=== PATIENT | female | born 1950 | race Caucasian/White ===

== ENCOUNTER 2016-05-09 20:37 | Emergency (ER) | payer BC ==
[~2016-05-09] VITALS: Ht 165.1 cm; Wt 77.1 kg
[2016-05-09] MEDS ORDERED: traMADol 50mg tab ORAL ONE (21:45)
[2016-05-09] MEDS ORDERED: IBUPROFEN600 MG ORAL (22:32)
[2016-05-09 22:40] VITALS: BP 145/73
--- NOTE | 2016-05-09 23:06 | Emergency Room Report ---
History of Present Illness General Chief Complaint: Lower Extremity Injury Source: Patient Present Illness HPI The pt is a 65 yo F presenting for R ankle pain which began today after missing a step and twisting the ankle. The pt states the pain is an 8/10 dull ache and radiates to the mid foot. The pt denies numbness/tingling. The pt denies prior injury to the ankle. The pt is unable to fully bear weight on the foot. The pt denies other symptoms Allergies: Uncoded Allergies: SULFA (Allergy, Unknown, 05/09/16) Patient History Past Medical History: see triage record Pertinent Family History: none Now: No : 11 Para: 8 Reviewed Nursing Documentation: PMH: Agreed, PSxH: Agreed Nursing Documentation-PMH Hx Asthma: Yes Hx Cancer: Yes - UCTD, Review of Systems All Other Systems: negative except mentioned in HPI Physical Exam Vital Signs Date Time Temp Pulse Resp B/P Pulse Ox O2 Delivery O2 Flow Rate FiO2 05/09/16 20:45 97.7 61 18 145/73 99 Room Air Sp02 EP Interpretation: reviewed, normal General Appearance: no apparent distress, alert, GCS 15, non-toxic Head: normocephalic, atraumatic Eyes: bilateral eye PERRL, bilateral eye normal inspection Musculoskeletal: back normal, normal range of motion, no calf tenderness, swelling - over the lateral ankle, tender - TTP over the lateral ankle Neurologic: alert, oriented x3, responsive, motor strength/tone normal, sensory intact, speech normal Psychiatric: judgement/insight normal, memory normal, mood/affect normal, no suicidal/homicidal ideation Reflexes: 3+ bicep (R), 3+ bicep (L), 3+ tricep (R), 3+ tricep (L), 3+ knee (R) , 3+ knee (L) Skin: normal color, no rash, warm/dry, well hydrated Procedures Splinting Splinting : Consent: Emergent Location: R ankle Pre-Made Type: SANTANA wrap Pre-Proc Neuro Vasc Exam: normal Post-Proc Neuro Vasc Exam: normal Patient Tolerated: Well Complications: None Medical Decision Making PA Attestation Dr. Abreu is my supervising physician. Patient management was discussed with my supervising physician Diagnostic Impression: Primary Impression: Ankle sprain ER Course The pt is a 65 yo F presenting for R ankle pain which began today after missing a step and twisting the ankle. Ddx considered include but not limited to sprain/strain, fracture, contusion PE: Vitals WNL. NAD. R foot: Skin intact. No erythema or ecchymosis. 1+ edema to lateral mal. Sensation intact to light touch. Full AROM. No joint laxity. TTP over lateral mal and 5th metatarsal Xray of foot and ankle unremarkable. The ankle is placed in SANTANA wrap and the pt is provided crutches. ER precautions given. Pt will FU with PMD. Prescription for motrin given. Other X-Ray Diagnostic Results Other X-Ray Diagnostic Results #1: X-Ray Ordered: R ankle Date: May 09, 2016 EP Interpretation: Yes Findings: no fractures, no dislocation, no soft tissue swelling Number of Views: 3 PA Scribe Text I'm acting as scribe for my supervising physician. My supervising physician's interpretation of the R ankle xrays are there are no fractures, dislocations or soft tissue swelling Other X-Ray Diagnostic Results #2: X-Ray Ordered: R foot Date: May 09, 2016 EP Interpretation: Yes Findings: no fractures, no dislocation, no soft tissue swelling Number of Views: 3 PA Scribe Text I'm acting as scribe for my supervising physician. My supervising physician's interpretation of the R foot xrays are there are no fractures, dislocations or soft tissue swelling Last Vital Signs Date Time Temp Pulse Resp B/P Pulse Ox O2 Delivery O2 Flow Rate FiO2 05/09/16 20:45 97.7 61 18 145/73 99 Room Air Status: improved Disposition: HOME, SELF-CARE Condition: Improved Scripts Ibuprofen* (MOTRIN*) 600 Mg Tablet 600 MG ORAL Q6H Y for For Pain, #30 TAB Prov: CARO SNEED P.A. 05/09/16 Patient Instructions: Ankle Sprain, RICE for Routine Care of Injuries Additional Instructions: I discussed my findings with the patient. All questions and concerns have been answered. Treatment and medication compliance have been addressed. I advised the patient that they need to follow up with PMD in 3-5 days. Return to ED if pain remains or worsens, numbness or tingling occurs, new rash is noticed, fever is noticed, or if needed for any reason. Patient verbalized understanding of discharge instructions. CARO SNEED May 09, 2016 23:06
--- NOTE | 2016-05-10 11:19 | Diagnostic Imaging Report ---
Indication: Pain Comparison: None Findings: 3 views of the right ankle obtained. No acute fracture, malalignment, periostitis, or osteochondral defects are identified. Soft tissues are unremarkable. Impression: Negative examination
--- NOTE | 2016-05-19 11:56 | Diagnostic Imaging Report ---
Indication: Pain Comparison: None Findings: 3 views of the right foot were obtained. No acute fractures, malalignment, erosions or periostitis are identified. Bone mineralization is within normal limits. Soft tissues are unremarkable. Impression: Negative examination of the right foot.
== END 2016-05-09 23:30 | disposition home or self-care (01) ==
LOC: EMR 23:29
DX: S93.401A Sprain of unspecified ligament of right ankle, initial encounter (principal); J45.909 Unspecified asthma, uncomplicated; Z88.2 Allergy status to sulfonamides; X50.1XXA Overexertion from prolonged static or awkward postures, initial encounter; Y92.9 Unspecified place or not applicable; Y99.8 Other external cause status
CPT/HCPCS: 99283